=== PATIENT | female | born 1950 | race Caucasian/White ===

== ENCOUNTER → 2018-12-02 | Outpatient (CLI) | payer OTHER | LOC: M.LAB 04:30 | DX: E87.6 Hypokalemia (principal) ==

== ENCOUNTER 2020-06-22 20:06 | Inpatient (IN) | payer OTHER, MEDICARE ==
[~2020-06-22] VITALS: Ht 167.6 cm; Wt 87.7 kg
[2020-06-22 20:34] VITALS: BP 100/61
[2020-06-22 20:39] LABS: ABSOLUTE LYMPHOCYTES 0.9 thou/uL (0.8-5.3); ABSOLUTE MONOCYTES 0.2 thou/uL (0.0-1.2); ABSOLUTE NEUTROPHILS 3.3 thou/uL (1.6-8.1); BASOPHILS 0.4 %; HEMATOCRIT 44.2 % (37.0-47.0); HEMOGLOBIN 14.4 gm/dL (12.0-15.0); LYMPHOCYTES 20.4 %; MCH 28.4 pg (26.0-34.0); MCHC 32.5 g/dL (28.0-37.0); MCV 87.4 fL (80.0-100.0); MONOCYTES 5.2 %; MPV 10.6 fl. (7.2-11.1); NUCLEATED RBCS 0 /100WBC; PLATELET COUNT* 95 thou/uL (150-400); RBC 5.06 mil/uL (4.20-5.00); RDW-CV 14.2 % (10.5-14.5); WBC 4.5 thou/uL (4.0-11.0)
[2020-06-22 20:51] LABS: CALCIUM 8.6 mg/dL (8.5-10.1); CREATININE 1.9 mg/dL (0.6-1.3)
[2020-06-22 20:52] LABS: BE -6.7 mmol/L (-2 to +3); PCO2 24.5 mmHg (35.0-45.0); PO2 64.1 mmHg (75.0-100.0); pH 7.425 (7.340-7.450)
[2020-06-22 20:54] LABS: POTASSIUM 2.9 mmol/L (3.5-5.1)
[2020-06-22 20:56] LABS: ALBUMIN 3.2 g/dL (3.4-5.0); MAGNESIUM 2.4 mg/dL (1.8-2.4); TOTAL BILIRUBIN 0.4 mg/dL (<0.1-1.0); TOTAL PROTEIN 7.8 g/dL (6.4-8.2)
[2020-06-22 23:01] LABS: URINE BLOOD TRACE (Negative); URINE CLARITY CLEAR; URINE COLOR YELLOW; URINE GLUCOSE-RANDOM NEGATIVE (Negative); URINE KETONES 1+ (Negative); URINE LEUKOCYTES-REFLEX TRACE (Negative); URINE NITRITE-REFLEX NEGATIVE (Negative); URINE PROTEIN 2+ (Negative); URINE UROBILINOGEN 0.2 E.U./dl (0.2-1.0)
[2020-06-22 23:03] LABS: ICTOTEST (BILI CONFIRMATORY) Negative (Negative); URINE BILIRUBIN 1+ (Negative)
[2020-06-22 23:07] LABS: SQUAMOUS 4-10 Moderate /LPF (0-3)
[2020-06-22 23:08] LABS: BACTERIA-REFLEX >30 Many /HPF (None Seen); CASTS None Seen /LPF (None Seen); CRYSTALS None Seen /LPF (None Seen); MUCUS 4-6 Moderate strn/LPF (None Seen); URINE WBC-REFLEX 6-15 Few /HPF (0-5)
[2020-06-23] VITALS (7 sets, daily range): BP systolic 90–127; BP diastolic 47–74
--- NOTE | 2020-06-23 12:32 | EKG ---
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 : 1950 Requested By: Liat Fuentes Order Number: [id number] MD: Rory Luke Measurements Intervals [place] Rate: 88 P: 32 PA: 169 QRS: -17 QRSD: 101 T: 22 QT: 373 QTc: 452 Interpretive Statements Sinus rhythm Borderline left axis deviation Low voltage, precordial leads Abnormal R-wave progression, early transition No previous ECG available for comparison Electronically Signed On 06-23-2020 12:31:53 CDT by Rory Luke [email or web address] <ELECTRONICALLY SIGNED> By: Zainab Luke MD, [facility] 06/23/20 1231 11 11 Zainab Luke MD, [facility] /EPI
[2020-06-24 00:44] VITALS: BP 109/62
[2020-06-24 04:31] LABS: ABSOLUTE MONOCYTES 0.3 thou/uL (0.0-1.2); ABSOLUTE NEUTROPHILS 5.8 thou/uL (1.6-8.1); BASOPHILS 0.1 %; HEMATOCRIT 40.2 % (37.0-47.0); LYMPHOCYTES 14.2 %; MCH 28.5 pg (26.0-34.0); MCHC 32.2 g/dL (28.0-37.0); MCV 88.4 fL (80.0-100.0); MONOCYTES 4.7 %; MPV 11.3 fl. (7.2-11.1); NUCLEATED RBCS 0 /100WBC; PLATELET COUNT* 102 thou/uL (150-400); RBC 4.55 mil/uL (4.20-5.00); RDW-CV 14.7 % (10.5-14.5); WBC 7.1 thou/uL (4.0-11.0)
[2020-06-24 04:33] LABS: CALCIUM 8.4 mg/dL (8.5-10.1); CREATININE 1.3 mg/dL (0.6-1.3); POTASSIUM 3.5 mmol/L (3.5-5.1)
[2020-06-24 06:38] VITALS: BP 117/62
[2020-06-24 08:00] VITALS: BP 121/75
[2020-06-24 12:00] VITALS: BP 92/53
[2020-06-24 16:17] VITALS: BP 107/53; BP 112/63
[2020-06-24 16:20] VITALS: BP 124/77
[2020-06-25] VITALS (8 sets, daily range): BP systolic 104–135; BP diastolic 47–88
[2020-06-25 05:00] LABS: ABSOLUTE LYMPHOCYTES 0.7 thou/uL (0.8-5.3); ABSOLUTE MONOCYTES 0.6 thou/uL (0.0-1.2); ABSOLUTE NEUTROPHILS 5.8 thou/uL (1.6-8.1); BASOPHILS 0.2 %; HEMOGLOBIN 13.9 gm/dL (12.0-15.0); LYMPHOCYTES 9.3 %; MCH 28.7 pg (26.0-34.0); MCHC 32.4 g/dL (28.0-37.0); MCV 88.6 fL (80.0-100.0); MONOCYTES 8.3 %; MPV 10.5 fl. (7.2-11.1); NUCLEATED RBCS 0 /100WBC; PLATELET COUNT* 129 thou/uL (150-400); POLYS 82.2 %; RBC 4.85 mil/uL (4.20-5.00); RDW-CV 14.9 % (10.5-14.5); WBC 7.1 thou/uL (4.0-11.0)
[2020-06-25 05:12] LABS: ALBUMIN 2.5 g/dL (3.4-5.0); CALCIUM 8.5 mg/dL (8.5-10.1); CREATININE 1.3 mg/dL (0.6-1.3); TOTAL BILIRUBIN 0.3 mg/dL (<0.1-1.0); TOTAL PROTEIN 6.7 g/dL (6.4-8.2)
[2020-06-25 15:40] LABS: APTT 29.6 Seconds (25.0-31.3); INR 1.1; PROTIME 11.3 Seconds (9.20-11.50)
--- NOTE | 2020-06-25 17:22 | 2DMMODE ---
[place] [address] 2 D/M-MODE ECHOCARDIOGRAM Name: CAROLENRIQUETA Room: [address] IN [facility]#: [id number] Admission: 06/23/20 Attend Phys: Mason Carbajal, Discharge: Date of : 50 Date of Service: 06/25/20 1722 Report #: [id number] THIS REPORT FOR: cc: Marquis Duong MD, Jason MD Blick,Evans Hansen MD [facility] ~ APPROVED REPORT Study performed: 06/25/2020 15:19:36 EXAM: Comprehensive 2D, Doppler, and color-flow Echocardiogram Patient Location: In-Patient Room #: 232 Status: routine BSA: 2.00 HR: 66 bpm Rhythm: NSR Other Information Study Quality: Good Indications Dyspnea COVID 2D Dimensions IVSd: 11.05 (7-11mm) LVOT Diam: 19.78 (18-24mm) LVDd: 44.63 mm PWd: 8.88 (7-11mm) Ascending Ao: 35.22 (22-36mm) LVDs: 27.06 (25-40mm) Aortic Root: 31.87 mm Volumes Left Atrial Volume (Systole) LA ESV Index: 18.10 mL/m2 Aortic Valve AoV Peak Jordan.: 1.38 m/s AO Peak Gr.: 7.56 mmHg LVOT Max P.68 mmHg AO Mean Gr.: 4.34 mmHg LVOT Mean P.18 mmHg LVOT Max V: 1.08 m/s AO V2 VTI: 27.78 cm LVOT Mean V: 0.67 m/s VIVIANA (VTI): 2.44 cm2 LVOT V1 VTI: 22.04 [place] [address] 2 D/M-MODE ECHOCARDIOGRAM Name: ENRIQUETA MEDINA Room: [address] IN ..#: [id number] Admission: 06/23/20 Attend Phys: Mason Carbajal, Discharge: Date of : 50 Date of Service: 06/25/20 1722 Report #: [id number] Mitral Valve E/A Ratio: 0.93 MV Decel. Time: 275.57 ms MV E Max Jordan.: 0.62 m/s MV PHT: 79.91 ms MVA (PHT): 2.75 cm2 TDI E/Lateral E': 6.89 E/Medial E': 8.86 Medial E' Jordan.: 0.07 m/s Lateral E' Jordan.: 0.09 m/s Pulmonary Valve PV Peak Jordan.: 1.04 m/s PV Peak Gr.: 4.29 mmHg Left Ventricle The left ventricle is normal size. There is normal LV segmental wall motion. There is normal left ventricular wall thickness. Left ventricular systolic function is normal. The left ventricular ejection fraction is within the normal range. LVEF is 55-60%. The left ventricular diastolic function is normal. Right Ventricle The right ventricle is normal size. The right ventricular systolic function is normal. Atria The left atrium size is normal. The right atrium size is normal. Aortic Valve Mild aortic valve sclerosis. No aortic regurgitation is present. There is no aortic valvular stenosis. Mitral Valve The mitral valve is normal in structure. There is no mitral valve regurgitation noted. No evidence of mitral valve stenosis. Tricuspid Valve The tricuspid valve is normal in structure. Trace tricuspid regurgitation. Unable to assess PA pressure. Pulmonic Valve The pulmonary valve is normal in structure. There is no [place]mon[place] [address] 2 D/M-MODE ECHOCARDIOGRAM Name: ENRIQUETA MEDINA Room: [address] IN [facility]#: [id number] Admission: 06/23/20 Attend Phys: Mason Carbajal, Discharge: Date of : 50 Date of Service: 06/25/20 1722 Report #: [id number] Great Vessels The aortic root is normal in size. IVC is normal in size and collapses >50% with inspiration. Pericardium There is no pericardial effusion. <Conclusion> LVEF is 55-60%. Mild aortic valve sclerosis. <ELECTRONICALLY SIGNED> By: Evans Frazier MD, [facility] 06/25/201721 21 21 Evans Frazier MD, FAC /INF
[2020-06-26] VITALS (17 sets, daily range): BP systolic 104–132; BP diastolic 55–75
[2020-06-26 06:26] LABS: ABSOLUTE LYMPHOCYTES 0.6 thou/uL (0.8-5.3); ABSOLUTE MONOCYTES 0.3 thou/uL (0.0-1.2); ABSOLUTE NEUTROPHILS 3.2 thou/uL (1.6-8.1); BASOPHILS 0.2 %; HEMATOCRIT 37.8 % (37.0-47.0); HEMOGLOBIN 12.4 gm/dL (12.0-15.0); LYMPHOCYTES 13.8 %; MCH 28.5 pg (26.0-34.0); MCHC 32.8 g/dL (28.0-37.0); MONOCYTES 7.7 %; MPV 10.7 fl. (7.2-11.1); NUCLEATED RBCS 0 /100WBC; PLATELET COUNT* 140 thou/uL (150-400); POLYS 78.3 %; RBC 4.34 mil/uL (4.20-5.00); RDW-CV 14.5 % (10.5-14.5)
[2020-06-26 06:52] LABS: PREALBUMIN 12.3 mg/dL (18.0-35.7)
[2020-06-26 07:43] LABS: ALBUMIN 2.4 g/dL (3.4-5.0); CALCIUM 8.2 mg/dL (8.5-10.1); CREATININE 0.9 mg/dL (0.6-1.3); MAGNESIUM 2.2 mg/dL (1.8-2.4); POTASSIUM 3.4 mmol/L (3.5-5.1); TOTAL BILIRUBIN 0.3 mg/dL (<0.1-1.0); TOTAL PROTEIN 6.6 g/dL (6.4-8.2)
[2020-06-26 15:41] LABS: BE -5.2 mmol/L (-2 to +3)
[2020-06-26 15:44] LABS: PO2 50.3 mmHg (75.0-100.0)
[2020-06-26 17:29] LABS: CALCIUM 8.1 mg/dL (8.5-10.1); MAGNESIUM 2.2 mg/dL (1.8-2.4); POTASSIUM 3.8 mmol/L (3.5-5.1)
[2020-06-27] VITALS (39 sets, daily range): BP systolic 111–158; BP diastolic 56–78
[2020-06-27 03:14] LABS: HEMATOCRIT 39.3 % (37.0-47.0); HEMOGLOBIN 12.8 gm/dL (12.0-15.0); MCH 28.3 pg (26.0-34.0); MCHC 32.6 g/dL (28.0-37.0); MCV 86.9 fL (80.0-100.0); MPV 10.2 fl. (7.2-11.1); RBC 4.52 mil/uL (4.20-5.00); RDW-CV 14.7 % (10.5-14.5); WBC 6.1 thou/uL (4.0-11.0)
[2020-06-27 03:29] LABS: ALBUMIN 2.3 g/dL (3.4-5.0); CALCIUM 8.2 mg/dL (8.5-10.1); CREATININE 1.1 mg/dL (0.6-1.3); MAGNESIUM 2.1 mg/dL (1.8-2.4); POTASSIUM 3.8 mmol/L (3.5-5.1); TOTAL BILIRUBIN 0.3 mg/dL (<0.1-1.0); TOTAL PROTEIN 6.5 g/dL (6.4-8.2)
[2020-06-27 18:08] LABS: BE -4.8 mmol/L (-2 to +3); PCO2 VENOUS 36.7 mmHg (41.0-51.0); PO2 VENOUS 39.1 mmHg (35.0-45.0)
[2020-06-27 18:17] LABS: CALCIUM 8.2 mg/dL (8.5-10.1); MAGNESIUM 2.2 mg/dL (1.8-2.4); POTASSIUM 3.6 mmol/L (3.5-5.1)
[2020-06-28] VITALS (21 sets, daily range): BP systolic 107–153; BP diastolic 46–77
[2020-06-28 06:16] LABS: ABSOLUTE LYMPHOCYTES 0.5 thou/uL (0.8-5.3); ABSOLUTE MONOCYTES 0.7 thou/uL (0.0-1.2); ABSOLUTE NEUTROPHILS 6.8 thou/uL (1.6-8.1); BASOPHILS 0.2 %; HEMATOCRIT 40.3 % (37.0-47.0); LYMPHOCYTES 6.3 %; MCHC 32.2 g/dL (28.0-37.0); MCV 86.8 fL (80.0-100.0); MONOCYTES 8.7 %; MPV 10.2 fl. (7.2-11.1); NUCLEATED RBCS 0 /100WBC; PLATELET COUNT* 191 thou/uL (150-400); POLYS 84.8 %; RBC 4.64 mil/uL (4.20-5.00); RDW-CV 14.6 % (10.5-14.5)
[2020-06-28 06:33] LABS: ALBUMIN 2.3 g/dL (3.4-5.0); CALCIUM 8.1 mg/dL (8.5-10.1); POTASSIUM 3.7 mmol/L (3.5-5.1); TOTAL BILIRUBIN 0.3 mg/dL (<0.1-1.0); TOTAL PROTEIN 6.3 g/dL (6.4-8.2)
[2020-06-29] VITALS (45 sets, daily range): BP systolic 89–158; BP diastolic 35–89
[2020-06-29 05:49] LABS: ABSOLUTE LYMPHOCYTES 0.5 thou/uL (0.8-5.3); ABSOLUTE MONOCYTES 0.7 thou/uL (0.0-1.2); ABSOLUTE NEUTROPHILS 8.6 thou/uL (1.6-8.1); ALBUMIN 2.4 g/dL (3.4-5.0); BASOPHILS 0.1 %; CALCIUM 8.1 mg/dL (8.5-10.1); HEMATOCRIT 41.1 % (37.0-47.0); HEMOGLOBIN 13.2 gm/dL (12.0-15.0); LYMPHOCYTES 5.5 %; MCH 27.9 pg (26.0-34.0); MCHC 32.1 g/dL (28.0-37.0); MONOCYTES 6.8 %; MPV 10.4 fl. (7.2-11.1); NUCLEATED RBCS 0 /100WBC; PLATELET COUNT* 197 thou/uL (150-400); POLYS 87.6 %; POTASSIUM 3.7 mmol/L (3.5-5.1); RBC 4.72 mil/uL (4.20-5.00); RDW-CV 14.3 % (10.5-14.5); TOTAL BILIRUBIN 0.4 mg/dL (<0.1-1.0); TOTAL PROTEIN 6.1 g/dL (6.4-8.2); WBC 9.9 thou/uL (4.0-11.0)
[2020-06-29 13:10] LABS: BE -7.7 mmol/L (-2 to +3); PCO2 VENOUS 32.8 mmHg (41.0-51.0); PO2 VENOUS 52.6 mmHg (35.0-45.0)
[2020-06-30] VITALS (63 sets, daily range): BP systolic 57–157; BP diastolic 41–89
[2020-06-30 06:34] LABS: HEMATOCRIT 42.1 % (37.0-47.0); HEMOGLOBIN 13.4 gm/dL (12.0-15.0); MCH 27.8 pg (26.0-34.0); MCHC 31.9 g/dL (28.0-37.0); MCV 86.9 fL (80.0-100.0); NUCLEATED RBCS 0 /100WBC; PLATELET COUNT* 195 thou/uL (150-400); RBC 4.84 mil/uL (4.20-5.00); RDW-CV 14.6 % (10.5-14.5); WBC 13.5 thou/uL (4.0-11.0)
[2020-06-30 07:27] LABS: ALBUMIN 2.4 g/dL (3.4-5.0); CALCIUM 7.9 mg/dL (8.5-10.1); POTASSIUM 4.3 mmol/L (3.5-5.1); TOTAL BILIRUBIN 0.5 mg/dL (<0.1-1.0); TOTAL PROTEIN 5.8 g/dL (6.4-8.2)
[2020-06-30 07:43] LABS: ABSOLUTE LYMPHOCYTES 0.7 thou/uL (0.8-5.3); ABSOLUTE MONOCYTES 0.3 thou/uL (0.0-1.2); ABSOLUTE NEUTROPHILS 12.6 thou/uL (1.6-8.1); PLATELET ESTIMATE ADEQUATE
[2020-07-01] VITALS (92 sets, daily range): BP systolic 86–158; BP diastolic 46–93
[2020-07-01 04:27] LABS: HEMATOCRIT 45.2 % (37.0-47.0); HEMOGLOBIN 14.7 gm/dL (12.0-15.0); MCH 28.1 pg (26.0-34.0); MCHC 32.6 g/dL (28.0-37.0); MCV 86.3 fL (80.0-100.0); MPV 9.7 fl. (7.2-11.1); RBC 5.24 mil/uL (4.20-5.00); RDW-CV 14.8 % (10.5-14.5); WBC 22.2 thou/uL (4.0-11.0)
[2020-07-01 04:31] LABS: CREATININE 1.1 mg/dL (0.6-1.3); POTASSIUM 4.4 mmol/L (3.5-5.1)
[2020-07-01 11:48] LABS: URINE BILIRUBIN NEGATIVE (Negative); URINE BLOOD 3+ (Negative); URINE CLARITY CLOUDY; URINE COLOR RED; URINE GLUCOSE-RANDOM NEGATIVE (Negative); URINE KETONES 1+ (Negative); URINE LEUKOCYTES TRACE (Negative); URINE NITRITE POSITIVE (Negative); URINE PROTEIN 2+ (Negative)
[2020-07-01 11:51] LABS: CALCIUM 8.5 mg/dL (8.5-10.1); CREATININE 1.1 mg/dL (0.6-1.3); POTASSIUM 4.3 mmol/L (3.5-5.1)
[2020-07-01 11:56] LABS: BACTERIA 1-9 Few /HPF (None Seen); CASTS None Seen /LPF (None Seen); CRYSTALS None Seen /LPF (None Seen); MUCUS None Seen strn/LPF (None Seen); SQUAMOUS 0-3 Few /LPF (0-3); URINE RBC >20 Many /HPF (0-2); URINE WBC 0-5 Rare /HPF (0-5)
[2020-07-01 14:47] LABS: BE -6.6 mmol/L (-2 to +3); PCO2 VENOUS 36.8 mmHg (41.0-51.0)
[2020-07-02] VITALS (85 sets, daily range): BP systolic 79–165; BP diastolic 35–81
[2020-07-02 04:42] LABS: HEMATOCRIT 43.8 % (37.0-47.0); HEMOGLOBIN 14.3 gm/dL (12.0-15.0); MCH 28.5 pg (26.0-34.0); MCHC 32.7 g/dL (28.0-37.0); RBC 5.04 mil/uL (4.20-5.00); RDW-CV 14.6 % (10.5-14.5); WBC 20.2 thou/uL (4.0-11.0)
[2020-07-02 04:46] LABS: CALCIUM 8.3 mg/dL (8.5-10.1); CREATININE 0.9 mg/dL (0.6-1.3); POTASSIUM 4.4 mmol/L (3.5-5.1)
[2020-07-03] VITALS (24 sets, daily range): BP systolic 82–133; BP diastolic 47–78
[2020-07-03 05:23] LABS: ABSOLUTE EOSINOPHILS 0.1 thou/uL (0.0-0.7); ABSOLUTE LYMPHOCYTES 1.3 thou/uL (0.8-5.3); ABSOLUTE MONOCYTES 0.6 thou/uL (0.0-1.2); ABSOLUTE NEUTROPHILS 13.3 thou/uL (1.6-8.1); BASOPHILS 0.3 %; EOSINOPHILS 0.4 %; HEMATOCRIT 42.2 % (37.0-47.0); HEMOGLOBIN 13.7 gm/dL (12.0-15.0); LYMPHOCYTES 8.7 %; MCHC 32.4 g/dL (28.0-37.0); MCV 86.3 fL (80.0-100.0); MONOCYTES 4.1 %; NUCLEATED RBCS 0 /100WBC; PLATELET COUNT* 150 thou/uL (150-400); POLYS 86.5 %; RBC 4.89 mil/uL (4.20-5.00); RDW-CV 14.6 % (10.5-14.5); WBC 15.3 thou/uL (4.0-11.0)
[2020-07-03 05:38] LABS: ALBUMIN 3.1 g/dL (3.4-5.0); CALCIUM 8.4 mg/dL (8.5-10.1); MAGNESIUM 2.1 mg/dL (1.8-2.4); POTASSIUM 3.8 mmol/L (3.5-5.1); TOTAL BILIRUBIN 0.9 mg/dL (<0.1-1.0); TOTAL PROTEIN 6.2 g/dL (6.4-8.2)
[2020-07-04] VITALS (24 sets, daily range): BP systolic 96–132; BP diastolic 43–85
[2020-07-04 05:23] LABS: HEMATOCRIT 45.6 % (37.0-47.0); HEMOGLOBIN 14.8 gm/dL (12.0-15.0); MCH 28.5 pg (26.0-34.0); MCHC 32.5 g/dL (28.0-37.0); MCV 87.7 fL (80.0-100.0); MPV 10.2 fl. (7.2-11.1); RBC 5.2 mil/uL (4.20-5.00); RDW-CV 15.1 % (10.5-14.5)
[2020-07-04 05:48] LABS: CALCIUM 8.9 mg/dL (8.5-10.1); POTASSIUM 3.6 mmol/L (3.5-5.1)
[2020-07-05] VITALS (26 sets, daily range): BP systolic 72–132; BP diastolic 38–114
[2020-07-05 03:48] LABS: HEMATOCRIT 45.3 % (37.0-47.0); HEMOGLOBIN 14.8 gm/dL (12.0-15.0); MCH 28.4 pg (26.0-34.0); MCHC 32.7 g/dL (28.0-37.0); MCV 86.9 fL (80.0-100.0); MPV 11.2 fl. (7.2-11.1); NUCLEATED RBCS 0 /100WBC; PLATELET COUNT* 159 thou/uL (150-400); RBC 5.22 mil/uL (4.20-5.00); RDW-CV 14.9 % (10.5-14.5); WBC 30.5 thou/uL (4.0-11.0)
[2020-07-05 04:09] LABS: CALCIUM 9.1 mg/dL (8.5-10.1); CREATININE 1.1 mg/dL (0.6-1.3); MAGNESIUM 2.6 mg/dL (1.8-2.4); PHOSPHORUS* 2.2 mg/dL (2.5-4.9); POTASSIUM 3.4 mmol/L (3.5-5.1); TOTAL BILIRUBIN 1.6 mg/dL (<0.1-1.0); TOTAL PROTEIN 7.3 g/dL (6.4-8.2)
[2020-07-05 04:14] LABS: ALBUMIN 4.1 g/dL (3.4-5.0)
[2020-07-05 05:22] LABS: ABSOLUTE LYMPHOCYTES 2.7 thou/uL (0.8-5.3); ABSOLUTE MONOCYTES 1.8 thou/uL (0.0-1.2); ABSOLUTE NEUTROPHILS 25.9 thou/uL (1.6-8.1)
[2020-07-05 05:23] LABS: CLUMPED PLTS FEW; PLATELET ESTIMATE ADEQUATE; TOXIC GRANULATION 2+
[2020-07-05 13:18] LABS: BE -5.6 mmol/L (-2 to +3); PCO2 31.9 mmHg (35.0-45.0); PO2 83.5 mmHg (75.0-100.0); pH 7.378 (7.340-7.450)
[2020-07-05 13:36] LABS: CALCIUM 8.6 mg/dL (8.5-10.1); CREATININE 1.3 mg/dL (0.6-1.3); PHOSPHORUS* 3.2 mg/dL (2.5-4.9); POTASSIUM 5.3 mmol/L (3.5-5.1)
[2020-07-06] VITALS (57 sets, daily range): BP systolic 64–147; BP diastolic 36–92
[2020-07-06 04:28] LABS: BASOPHILS 0.1 %; MCH 29.3 pg (26.0-34.0); MCV 88.6 fL (80.0-100.0); MONOCYTES 4.2 %; MPV 10.9 fl. (7.2-11.1); NUCLEATED RBCS 0 /100WBC; POLYS 89.7 %; RBC 4.06 mil/uL (4.20-5.00); RDW-CV 15.1 % (10.5-14.5)
[2020-07-06 04:46] LABS: ALBUMIN 3.4 g/dL (3.4-5.0); CALCIUM 8.3 mg/dL (8.5-10.1); CREATININE 0.9 mg/dL (0.6-1.3); TOTAL BILIRUBIN 1.9 mg/dL (<0.1-1.0); TOTAL PROTEIN 5.6 g/dL (6.4-8.2)
[2020-07-06 05:13] LABS: ABSOLUTE LYMPHOCYTES 0.9 thou/uL (0.8-5.3); ABSOLUTE MONOCYTES 0.6 thou/uL (0.0-1.2); ABSOLUTE NEUTROPHILS 13.4 thou/uL (1.6-8.1); HEMOGLOBIN 11.9 gm/dL (12.0-15.0); PLATELET COUNT* 72 thou/uL (150-400); WBC 14.9 thou/uL (4.0-11.0)
[2020-07-06 05:44] LABS: POTASSIUM 3.5 mmol/L (3.5-5.1)
[2020-07-06 08:05] LABS: BE -6.4 mmol/L (-2 to +3); PCO2 31.7 mmHg (35.0-45.0); pH 7.368 (7.340-7.450)
[2020-07-06 09:33] LABS: HEMATOCRIT 39.8 % (37.0-47.0); HEMOGLOBIN 12.8 gm/dL (12.0-15.0); MCH 28.5 pg (26.0-34.0); MCHC 32.1 g/dL (28.0-37.0); MCV 88.8 fL (80.0-100.0); MPV 11.4 fl. (7.2-11.1); NUCLEATED RBCS 0 /100WBC; PLATELET COUNT* 112 thou/uL (150-400); RBC 4.49 mil/uL (4.20-5.00); RDW-CV 15.3 % (10.5-14.5); WBC 26.5 thou/uL (4.0-11.0)
[2020-07-06 09:51] LABS: CALCIUM 8.2 mg/dL (8.5-10.1); CREATININE 0.9 mg/dL (0.6-1.3); MAGNESIUM 2.3 mg/dL (1.8-2.4); PHOSPHORUS* 3.1 mg/dL (2.5-4.9); POTASSIUM 3.3 mmol/L (3.5-5.1)
[2020-07-06 10:12] LABS: ABSOLUTE LYMPHOCYTES 1.3 thou/uL (0.8-5.3); ABSOLUTE MONOCYTES 0.8 thou/uL (0.0-1.2); ABSOLUTE NEUTROPHILS 24.4 thou/uL (1.6-8.1); PLATELET ESTIMATE ADEQUATE
[2020-07-06 18:40] LABS: HEMATOCRIT 40.9 % (37.0-47.0); HEMOGLOBIN 12.8 gm/dL (12.0-15.0); MCH 28.6 pg (26.0-34.0); MCHC 31.3 g/dL (28.0-37.0); MCV 91.4 fL (80.0-100.0); MPV 11.1 fl. (7.2-11.1); NUCLEATED RBCS 0 /100WBC; PLATELET COUNT* 123 thou/uL (150-400); RBC 4.47 mil/uL (4.20-5.00); RDW-CV 16.3 % (10.5-14.5); WBC 39.2 thou/uL (4.0-11.0)
[2020-07-06 18:56] LABS: CREATININE 1.3 mg/dL (0.6-1.3); MAGNESIUM 2.2 mg/dL (1.8-2.4); POTASSIUM 4.3 mmol/L (3.5-5.1)
[2020-07-06 19:18] LABS: ABSOLUTE LYMPHOCYTES 1.2 thou/uL (0.8-5.3); ABSOLUTE MONOCYTES 0.8 thou/uL (0.0-1.2); ABSOLUTE NEUTROPHILS 37.2 thou/uL (1.6-8.1); PLATELET ESTIMATE ADEQUATE
[2020-07-06 20:00] LABS: BE -10.6 mmol/L (-2 to +3); PCO2 28.8 mmHg (35.0-45.0); PO2 66.5 mmHg (75.0-100.0)
[2020-07-06 20:26] LABS: CALCIUM 8.4 mg/dL (8.5-10.1); CREATININE 1.1 mg/dL (0.6-1.3); POTASSIUM 4.2 mmol/L (3.5-5.1)
[2020-07-07] VITALS (64 sets, daily range): BP systolic 67–156; BP diastolic 41–81
[2020-07-07 05:02] LABS: ABSOLUTE BASOPHILS 0.1 thou/uL (0.0-0.2); ABSOLUTE EOSINOPHILS 0.1 thou/uL (0.0-0.7); ABSOLUTE LYMPHOCYTES 1.9 thou/uL (0.8-5.3); ABSOLUTE MONOCYTES 2.1 thou/uL (0.0-1.2); BASOPHILS 0.2 %; EOSINOPHILS 0.2 %; HEMATOCRIT 38.5 % (37.0-47.0); HEMOGLOBIN 12.4 gm/dL (12.0-15.0); LYMPHOCYTES 4.6 %; MCH 28.4 pg (26.0-34.0); MCHC 32.3 g/dL (28.0-37.0); MCV 87.9 fL (80.0-100.0); MONOCYTES 5.1 %; MPV 11.1 fl. (7.2-11.1); NUCLEATED RBCS 0 /100WBC; PLATELET COUNT* 114 thou/uL (150-400); POLYS 89.9 %; RBC 4.38 mil/uL (4.20-5.00); RDW-CV 15.4 % (10.5-14.5)
[2020-07-07 06:26] LABS: ABSOLUTE NEUTROPHILS 37.8 thou/uL (1.6-8.1)
[2020-07-07 06:58] LABS: ALBUMIN 2.9 g/dL (3.4-5.0); CALCIUM 8.2 mg/dL (8.5-10.1); CREATININE 0.9 mg/dL (0.6-1.3); MAGNESIUM 2.2 mg/dL (1.8-2.4); PHOSPHORUS* 1.3 mg/dL (2.5-4.9); TOTAL BILIRUBIN 1.5 mg/dL (<0.1-1.0); TOTAL PROTEIN 4.8 g/dL (6.4-8.2)
[2020-07-07 07:00] LABS: POTASSIUM 3.2 mmol/L (3.5-5.1)
[2020-07-07 08:07] LABS: BE -2.9 mmol/L (-2 to +3); PCO2 35.3 mmHg (35.0-45.0); pH 7.398 (7.340-7.450)
[2020-07-07 08:13] LABS: PO2 59.8 mmHg (75.0-100.0)
[2020-07-07 16:46] LABS: BE -4.4 mmol/L (-2 to +3); PCO2 35.9 mmHg (35.0-45.0); PO2 78.3 mmHg (75.0-100.0); pH 7.369 (7.340-7.450)
[2020-07-07 16:51] LABS: ABSOLUTE NEUTROPHILS 46.2 thou/uL (1.6-8.1); BASOPHILS 0.1 %; EOSINOPHILS 0.1 %; HEMATOCRIT 36.8 % (37.0-47.0); LYMPHOCYTES 4.2 %; MCH 28.3 pg (26.0-34.0); MCHC 32.5 g/dL (28.0-37.0); MCV 86.9 fL (80.0-100.0); MONOCYTES 4.6 %; MPV 11.5 fl. (7.2-11.1); NUCLEATED RBCS 0 /100WBC; PLATELET COUNT* 110 thou/uL (150-400); RBC 4.23 mil/uL (4.20-5.00); RDW-CV 14.9 % (10.5-14.5)
[2020-07-07 16:57] LABS: ABSOLUTE BASOPHILS 0.1 thou/uL (0.0-0.2); ABSOLUTE EOSINOPHILS 0.1 thou/uL (0.0-0.7); ABSOLUTE LYMPHOCYTES 2.1 thou/uL (0.8-5.3); ABSOLUTE MONOCYTES 2.3 thou/uL (0.0-1.2)
[2020-07-07 16:58] LABS: WBC 50.8 thou/uL (4.0-11.0)
[2020-07-07 17:02] LABS: CALCIUM 7.8 mg/dL (8.5-10.1); POTASSIUM 4.9 mmol/L (3.5-5.1)
[2020-07-07 17:06] LABS: APTT 27.2 Seconds (25.0-31.3); INR 1.1; PROTIME 11.5 Seconds (9.20-11.50)
[2020-07-08] VITALS (34 sets, daily range): BP systolic 83–149; BP diastolic 40–73
[2020-07-08 03:52] LABS: BASOPHILS 0.2 %; EOSINOPHILS 0.1 %; LYMPHOCYTES 5.4 %; MCH 28.4 pg (26.0-34.0); MCHC 32.4 g/dL (28.0-37.0); MCV 87.6 fL (80.0-100.0); MONOCYTES 4.4 %; MPV 11.1 fl. (7.2-11.1); NUCLEATED RBCS 0 /100WBC; PLATELET COUNT* 65 thou/uL (150-400); POLYS 89.9 %; RBC 3.08 mil/uL (4.20-5.00); RDW-CV 15.2 % (10.5-14.5)
[2020-07-08 04:13] LABS: ALBUMIN 3.6 g/dL (3.4-5.0); CALCIUM 7.6 mg/dL (8.5-10.1); CREATININE 0.9 mg/dL (0.6-1.3); MAGNESIUM 1.9 mg/dL (1.8-2.4); POTASSIUM 4.2 mmol/L (3.5-5.1); TOTAL BILIRUBIN 2.5 mg/dL (<0.1-1.0); TOTAL PROTEIN 4.8 g/dL (6.4-8.2)
[2020-07-08 04:18] LABS: PHOSPHORUS* 2.4 mg/dL (2.5-4.9)
[2020-07-08 05:59] LABS: ABSOLUTE BASOPHILS 0.1 thou/uL (0.0-0.2); ABSOLUTE LYMPHOCYTES 1.5 thou/uL (0.8-5.3); ABSOLUTE MONOCYTES 1.3 thou/uL (0.0-1.2); ABSOLUTE NEUTROPHILS 25.7 thou/uL (1.6-8.1); HEMOGLOBIN 8.8 gm/dL (12.0-15.0); WBC 28.6 thou/uL (4.0-11.0)
[2020-07-08 07:26] LABS: BE -1.9 mmol/L (-2 to +3); PCO2 34.1 mmHg (35.0-45.0); pH 7.428 (7.340-7.450)
[2020-07-08 07:28] LABS: PO2 59.8 mmHg (75.0-100.0)
[2020-07-08 14:44] LABS: ABSOLUTE LYMPHOCYTES 0.8 thou/uL (0.8-5.3); ABSOLUTE MONOCYTES 0.7 thou/uL (0.0-1.2); ABSOLUTE NEUTROPHILS 27.3 thou/uL (1.6-8.1); EOSINOPHILS 0.1 %; HEMATOCRIT 27.2 % (37.0-47.0); HEMOGLOBIN 8.9 gm/dL (12.0-15.0); LYMPHOCYTES 2.6 %; MCH 28.7 pg (26.0-34.0); MCHC 32.8 g/dL (28.0-37.0); MCV 87.3 fL (80.0-100.0); MONOCYTES 2.5 %; MPV 10.8 fl. (7.2-11.1); NUCLEATED RBCS 0 /100WBC; PLATELET COUNT* 58 thou/uL (150-400); POLYS 94.8 %; RBC 3.11 mil/uL (4.20-5.00); RDW-CV 15.1 % (10.5-14.5); WBC 28.8 thou/uL (4.0-11.0)
[2020-07-08 14:53] LABS: CALCIUM 7.5 mg/dL (8.5-10.1); CREATININE 0.9 mg/dL (0.6-1.3); MAGNESIUM 1.8 mg/dL (1.8-2.4); POTASSIUM 4.5 mmol/L (3.5-5.1)
[2020-07-09] VITALS (21 sets, daily range): BP systolic 97–134; BP diastolic 50–65
[2020-07-09 04:13] LABS: ABSOLUTE LYMPHOCYTES 1.1 thou/uL (0.8-5.3); ABSOLUTE MONOCYTES 1.1 thou/uL (0.0-1.2); ABSOLUTE NEUTROPHILS 20.5 thou/uL (1.6-8.1); EOSINOPHILS 0.1 %; HEMATOCRIT 25.6 % (37.0-47.0); HEMOGLOBIN 8.5 gm/dL (12.0-15.0); LYMPHOCYTES 4.7 %; MCHC 33.2 g/dL (28.0-37.0); MCV 87.4 fL (80.0-100.0); MONOCYTES 4.8 %; MPV 11.3 fl. (7.2-11.1); NUCLEATED RBCS 0 /100WBC; PLATELET COUNT* 52 thou/uL (150-400); POLYS 90.4 %; RBC 2.93 mil/uL (4.20-5.00); RDW-CV 15.3 % (10.5-14.5); WBC 22.7 thou/uL (4.0-11.0)
[2020-07-09 04:24] LABS: CALCIUM 7.8 mg/dL (8.5-10.1); CREATININE 0.7 mg/dL (0.6-1.3); MAGNESIUM 2.2 mg/dL (1.8-2.4); PHOSPHORUS* 2.1 mg/dL (2.5-4.9); POTASSIUM 4.2 mmol/L (3.5-5.1)
[2020-07-09 08:36] LABS: BE -1.5 mmol/L (-2 to +3); PCO2 37.1 mmHg (35.0-45.0); PO2 64.9 mmHg (75.0-100.0); pH 7.409 (7.340-7.450)
[2020-07-09 09:15] LABS: ALBUMIN 2.9 g/dL (3.4-5.0); CALCIUM 7.6 mg/dL (8.5-10.1); CREATININE 0.8 mg/dL (0.6-1.3); MAGNESIUM 2.1 mg/dL (1.8-2.4); PHOSPHORUS* 1.9 mg/dL (2.5-4.9); POTASSIUM 3.9 mmol/L (3.5-5.1); TOTAL BILIRUBIN 1.9 mg/dL (<0.1-1.0); TOTAL PROTEIN 4.7 g/dL (6.4-8.2)
[2020-07-10] VITALS (57 sets, daily range): BP systolic 72–132; BP diastolic 42–63
[2020-07-10 05:09] LABS: HEMATOCRIT 27.7 % (37.0-47.0); MCH 28.5 pg (26.0-34.0); MCHC 32.6 g/dL (28.0-37.0); MCV 87.4 fL (80.0-100.0); MPV 11.1 fl. (7.2-11.1); NUCLEATED RBCS 0 /100WBC; PLATELET COUNT* 55 thou/uL (150-400); RBC 3.17 mil/uL (4.20-5.00); RDW-CV 15.3 % (10.5-14.5); WBC 21.2 thou/uL (4.0-11.0)
[2020-07-10 05:19] LABS: ALBUMIN 3.3 g/dL (3.4-5.0); CALCIUM 7.6 mg/dL (8.5-10.1); CREATININE 0.7 mg/dL (0.6-1.3); MAGNESIUM 2.1 mg/dL (1.8-2.4); PHOSPHORUS* 3.4 mg/dL (2.5-4.9); POTASSIUM 3.9 mmol/L (3.5-5.1); TOTAL BILIRUBIN 2.4 mg/dL (<0.1-1.0); TOTAL PROTEIN 5.7 g/dL (6.4-8.2)
[2020-07-10 07:37] LABS: ABSOLUTE LYMPHOCYTES 2.1 thou/uL (0.8-5.3); ABSOLUTE MONOCYTES 0.4 thou/uL (0.0-1.2); ABSOLUTE NEUTROPHILS 18.7 thou/uL (1.6-8.1); ATYPICAL LYMPHS P %; PLATELET ESTIMATE DECREASED
[2020-07-10 07:38] LABS: ANISOCYTOSIS 1+; LARGE PLATELETS RARE; POIKILOCYTOSIS 1+
[2020-07-10 08:30] LABS: BE -0.5 mmol/L (-2 to +3); PCO2 39.2 mmHg (35.0-45.0); PO2 71.2 mmHg (75.0-100.0); pH 7.406 (7.340-7.450)
--- NOTE | 2020-07-10 14:52 | CON ---
[place] [address] CONSULTATION Name: ENRIQUETA MEDINA Room: [address] IN M.R.#: [id number] Admission: 06/23/20 Attend Phys: Mason Carbajal MD Discharge: Date of : 50 Report #: [id number] THIS REPORT FOR: cc: Marquis Duong MD, Jason MD Namin, Farid M. MD ~ DOC #: [id number] cc: MD Han Navarro MD DATE OF CONSULTATION: 07/07/2020 REASON FOR CONSULTATION: Elevation of pancreatic enzyme and transaminases REQUESTING PHYSICIAN: Dr. Chavez. HISTORY OF PRESENT ILLNESS: This is a 69-year-old female with history of COVID who was admitted to hospital on 06/23/2020. She has apparently been sick a week prior to her presentation. Her presentation included shortness of breath and weakness. During hospitalization, the patient's respiratory status worsened and she finally was intubated. She has received TPN for a short amount of time, but prior to that, she was able to eat. Since yesterday, the patient's LFTs have bumped and her lipase found to be in 6000 range yesterday and is about 8000 today. Her abdomen is mildly distended, but she is sedated and intubated. PAST MEDICAL HISTORY: Significant for history of bilateral knee replacement, obesity, right shoulder surgery. ALLERGIES: SIGNIFICANT TO ASPIRIN. MEDICATIONS: Please refer to MAR. SOCIAL HISTORY: The patient lives at home. She does not have any history of tobacco or alcohol use. FAMILY HISTORY: Noncontributory. PHYSICAL EXAMINATION: VITAL SIGNS: Reveals blood pressure of 147/81, respirations 22, pulse 97, temperature is 97.5. LUNGS: Breath sounds are audible bilaterally. Note, the patient is intubated. CARDIOVASCULAR: Regular rate. ABDOMEN: Soft, but mildly distended. Bowel [place], [place] [address] CONSULTATION Name: ENRIQUETA MEDINA Room: [address] IN [facility]#: [id number] Admission: 06/23/20 Attend Phys: Mason Carbajal MD Discharge: Date of : 50 Report #: [id number] hypoactive. LABORATORY DATA: Labs reveal sodium of 154; potassium 3.2; BUN is 47; creatinine 0.9; glucose is 194; AST 123, up from 34; ALT is 198, up from 69; alkaline phosphatase is 88; total bilirubin is 1.5, down from 1.9. Lipase is 8800, up from 6300. WBC is 42,000, hemoglobin is 12.4 with platelets of 114. IMAGING: Abdominal ultrasound was obtained, which showed that gallbladder was present without any evidence of cholecystitis. There is evidence of steatosis of the liver. In this study, the pancreas was not visualized well. The common bile duct is 5.8 mm in diameter and gallbladder was free of stone, but had a small amount of debris in it. ASSESSMENT AND PLAN: The patient with pancreatitis and elevated liver enzymes. There is usually a high correlation between elevated LFTs and pancreatitis when there is a biliary cause. In this case, alkaline phosphatase is normal. The bile duct is mildly dilated to 5.8 mm. Her pancreatitis may be multifactorial or med-induced as transaminases are elevated as well. Bilirubin has down trended since yesterday, so we will continue monitoring LFTs. I will make her n.p.o. and consider hydrating her with half normal saline as her sodium is 152. If her lipase continues to be elevated, we will consider a Dobbhoff post-gastric feeding on Thursday. We will continue to monitor the patient. Han Gomez MD FMN/SUB <ELECTRONICALLY SIGNED> By: Han Gomez MD 07/10/20 1452 1438 2135Han Gomez MD /nt
[2020-07-10 17:34] LABS: CALCIUM 7.8 mg/dL (8.5-10.1); CREATININE 0.8 mg/dL (0.6-1.3); MAGNESIUM 1.9 mg/dL (1.8-2.4); POTASSIUM 3.8 mmol/L (3.5-5.1)
[2020-07-11] VITALS (46 sets, daily range): BP systolic 100–141; BP diastolic 58–75
[2020-07-11 06:26] LABS: ABSOLUTE LYMPHOCYTES 1.1 thou/uL (0.8-5.3); ABSOLUTE MONOCYTES 1.9 thou/uL (0.0-1.2); HEMATOCRIT 30.8 % (37.0-47.0); HEMOGLOBIN 10.2 gm/dL (12.0-15.0); LYMPHOCYTES 3.4 %; MCH 28.8 pg (26.0-34.0); MCHC 33.2 g/dL (28.0-37.0); MCV 86.7 fL (80.0-100.0); MONOCYTES 5.8 %; MPV 10.9 fl. (7.2-11.1); NUCLEATED RBCS 0 /100WBC; PLATELET COUNT* 103 thou/uL (150-400); POLYS 90.8 %; RBC 3.55 mil/uL (4.20-5.00); WBC 31.9 thou/uL (4.0-11.0)
[2020-07-11 06:39] LABS: PHOSPHORUS* 2.9 mg/dL (2.5-4.9)
[2020-07-11 06:41] LABS: ALBUMIN 4.4 g/dL (3.4-5.0); CALCIUM 8.5 mg/dL (8.5-10.1); CREATININE 0.8 mg/dL (0.6-1.3); POTASSIUM 3.6 mmol/L (3.5-5.1); TOTAL BILIRUBIN 3.6 mg/dL (<0.1-1.0); TOTAL PROTEIN 6.7 g/dL (6.4-8.2)
[2020-07-11 09:21] LABS: MAGNESIUM 2.2 mg/dL (1.8-2.4); PHOSPHORUS* 2.9 mg/dL (2.5-4.9)
[2020-07-11 18:16] LABS: CALCIUM 8.2 mg/dL (8.5-10.1); CREATININE 0.6 mg/dL (0.6-1.3); MAGNESIUM 2.3 mg/dL (1.8-2.4); POTASSIUM 3.8 mmol/L (3.5-5.1)
[2020-07-12] VITALS (23 sets, daily range): BP systolic 73–165; BP diastolic 43–75
[2020-07-12 05:41] LABS: ABSOLUTE LYMPHOCYTES 1.3 thou/uL (0.8-5.3); ABSOLUTE MONOCYTES 2.2 thou/uL (0.0-1.2); ABSOLUTE NEUTROPHILS 23.7 thou/uL (1.6-8.1); BASOPHILS 0.1 %; LYMPHOCYTES 4.9 %; MCHC 33.3 g/dL (28.0-37.0); MONOCYTES 8.1 %; MPV 10.8 fl. (7.2-11.1); NUCLEATED RBCS 0 /100WBC; PLATELET COUNT* 101 thou/uL (150-400); POLYS 86.9 %; RBC 3.45 mil/uL (4.20-5.00); WBC 27.2 thou/uL (4.0-11.0)
[2020-07-12 05:56] LABS: MAGNESIUM 2.2 mg/dL (1.8-2.4); PHOSPHORUS* 2.3 mg/dL (2.5-4.9)
[2020-07-12 06:17] LABS: ALBUMIN 3.5 g/dL (3.4-5.0); CALCIUM 8.2 mg/dL (8.5-10.1); CREATININE 0.7 mg/dL (0.6-1.3); POTASSIUM 3.6 mmol/L (3.5-5.1); TOTAL BILIRUBIN 4.3 mg/dL (<0.1-1.0); TOTAL PROTEIN 5.8 g/dL (6.4-8.2)
[2020-07-12 07:30] LABS: BE -2.2 mmol/L (-2 to +3); PCO2 39.8 mmHg (35.0-45.0); PO2 69.6 mmHg (75.0-100.0); pH 7.375 (7.340-7.450)
[2020-07-13] VITALS (28 sets, daily range): BP systolic 89–146; BP diastolic 48–68
[2020-07-13 04:27] LABS: ABSOLUTE LYMPHOCYTES 0.8 thou/uL (0.8-5.3); ABSOLUTE MONOCYTES 0.9 thou/uL (0.0-1.2); EOSINOPHILS 0.1 %; HEMATOCRIT 27.6 % (37.0-47.0); HEMOGLOBIN 9.1 gm/dL (12.0-15.0); LYMPHOCYTES 5.2 %; MCHC 32.8 g/dL (28.0-37.0); MCV 88.3 fL (80.0-100.0); MONOCYTES 6.2 %; NUCLEATED RBCS 0 /100WBC; PLATELET COUNT* 81 thou/uL (150-400); POLYS 88.5 %; RBC 3.13 mil/uL (4.20-5.00); RDW-CV 15.6 % (10.5-14.5); WBC 14.6 thou/uL (4.0-11.0)
[2020-07-13 04:41] LABS: ALBUMIN 2.8 g/dL (3.4-5.0); CALCIUM 8.2 mg/dL (8.5-10.1); CREATININE 0.7 mg/dL (0.6-1.3); POTASSIUM 4.2 mmol/L (3.5-5.1); TOTAL BILIRUBIN 5.4 mg/dL (<0.1-1.0); TOTAL PROTEIN 5.2 g/dL (6.4-8.2)
[2020-07-13 09:12] LABS: INR 1.5; PROTIME 15.1 Seconds (9.20-11.50)
[2020-07-13 09:17] LABS: MAGNESIUM 2.1 mg/dL (1.8-2.4); PHOSPHORUS* 2.5 mg/dL (2.5-4.9)
[2020-07-14] VITALS (52 sets, daily range): BP systolic 76–144; BP diastolic 42–67
[2020-07-14 04:37] LABS: HEMATOCRIT 26.6 % (37.0-47.0); HEMOGLOBIN 8.7 gm/dL (12.0-15.0); MCH 28.7 pg (26.0-34.0); MCHC 32.6 g/dL (28.0-37.0); MCV 88.3 fL (80.0-100.0); MPV 10.3 fl. (7.2-11.1); NUCLEATED RBCS 0 /100WBC; PLATELET COUNT* 76 thou/uL (150-400); RBC 3.02 mil/uL (4.20-5.00); RDW-CV 15.9 % (10.5-14.5); WBC 13.8 thou/uL (4.0-11.0)
[2020-07-14 05:09] LABS: ALBUMIN 2.4 g/dL (3.4-5.0); CALCIUM 7.7 mg/dL (8.5-10.1); CREATININE 0.6 mg/dL (0.6-1.3); MAGNESIUM 1.9 mg/dL (1.8-2.4); PHOSPHORUS* 2.5 mg/dL (2.5-4.9); TOTAL BILIRUBIN 1.8 mg/dL (<0.1-1.0); TOTAL PROTEIN 4.5 g/dL (6.4-8.2)
[2020-07-14 05:46] LABS: BE -6.8 mmol/L (-2 to +3); PCO2 29.3 mmHg (35.0-45.0); PO2 69.2 mmHg (75.0-100.0); pH 7.389 (7.340-7.450)
[2020-07-14 06:43] LABS: ABSOLUTE EOSINOPHILS 0.3 thou/uL (0.0-0.7); ABSOLUTE LYMPHOCYTES 0.4 thou/uL (0.8-5.3); ABSOLUTE MONOCYTES 0.4 thou/uL (0.0-1.2); ABSOLUTE NEUTROPHILS 12.7 thou/uL (1.6-8.1); LARGE PLATELETS RARE; PLATELET ESTIMATE DECREASED
[2020-07-15] VITALS (64 sets, daily range): BP systolic 88–124; BP diastolic 42–60
[2020-07-15 05:27] LABS: ABSOLUTE EOSINOPHILS 0.1 thou/uL (0.0-0.7); ABSOLUTE LYMPHOCYTES 1.2 thou/uL (0.8-5.3); ABSOLUTE MONOCYTES 0.7 thou/uL (0.0-1.2); BASOPHILS 0.1 %; EOSINOPHILS 0.8 %; HEMATOCRIT 26.9 % (37.0-47.0); HEMOGLOBIN 8.7 gm/dL (12.0-15.0); LYMPHOCYTES 6.9 %; MCH 28.7 pg (26.0-34.0); MCHC 32.4 g/dL (28.0-37.0); MCV 88.5 fL (80.0-100.0); MONOCYTES 4.3 %; MPV 11.2 fl. (7.2-11.1); NUCLEATED RBCS 0 /100WBC; PLATELET COUNT* 100 thou/uL (150-400); POLYS 87.9 %; RBC 3.03 mil/uL (4.20-5.00); WBC 17.1 thou/uL (4.0-11.0)
[2020-07-15 05:42] LABS: MAGNESIUM 1.8 mg/dL (1.8-2.4); PHOSPHORUS* 2.3 mg/dL (2.5-4.9)
[2020-07-15 05:47] LABS: ALBUMIN 2.2 g/dL (3.4-5.0); CALCIUM 7.8 mg/dL (8.5-10.1); CREATININE 0.6 mg/dL (0.6-1.3); POTASSIUM 3.8 mmol/L (3.5-5.1); TOTAL BILIRUBIN 1.2 mg/dL (<0.1-1.0); TOTAL PROTEIN 5.1 g/dL (6.4-8.2)
[2020-07-15 05:55] LABS: BE -2.8 mmol/L (-2 to +3); PCO2 37.1 mmHg (35.0-45.0); pH 7.388 (7.340-7.450)
[2020-07-15 06:06] LABS: PO2 190.4 mmHg (75.0-100.0)
[2020-07-16] VITALS (71 sets, daily range): BP systolic 93–137; BP diastolic 46–65
[2020-07-16 06:00] LABS: POLYS 86.2 %
[2020-07-16 06:02] LABS: ABSOLUTE EOSINOPHILS 0.1 thou/uL (0.0-0.7); ABSOLUTE LYMPHOCYTES 1.2 thou/uL (0.8-5.3); ABSOLUTE MONOCYTES 0.8 thou/uL (0.0-1.2); ABSOLUTE NEUTROPHILS 13.3 thou/uL (1.6-8.1); BASOPHILS 0.2 %; EOSINOPHILS 0.7 %; HEMATOCRIT 25.1 % (37.0-47.0); HEMOGLOBIN 8.3 gm/dL (12.0-15.0); LYMPHOCYTES 7.7 %; MCH 29.2 pg (26.0-34.0); MCHC 33.3 g/dL (28.0-37.0); MCV 87.6 fL (80.0-100.0); MONOCYTES 5.2 %; MPV 10.6 fl. (7.2-11.1); NUCLEATED RBCS 0 /100WBC; PLATELET COUNT* 120 thou/uL (150-400); RBC 2.86 mil/uL (4.20-5.00); RDW-CV 16.4 % (10.5-14.5); WBC 15.4 thou/uL (4.0-11.0)
[2020-07-16 06:14] LABS: ALBUMIN 2.7 g/dL (3.4-5.0); CREATININE 0.5 mg/dL (0.6-1.3); POTASSIUM 3.5 mmol/L (3.5-5.1); TOTAL PROTEIN 5.6 g/dL (6.4-8.2)
[2020-07-16 13:56] LABS: BE -4.1 mmol/L (-2 to +3); PCO2 38.1 mmHg (35.0-45.0); pH 7.359 (7.340-7.450)
[2020-07-16 13:57] LABS: PO2 59.3 mmHg (75.0-100.0)
[2020-07-17] VITALS (32 sets, daily range): BP systolic 85–151; BP diastolic 50–65
[2020-07-17 05:01] LABS: HEMATOCRIT 26.1 % (37.0-47.0); HEMOGLOBIN 8.6 gm/dL (12.0-15.0); MCHC 32.8 g/dL (28.0-37.0); MCV 88.4 fL (80.0-100.0); MPV 10.5 fl. (7.2-11.1); NUCLEATED RBCS 0 /100WBC; PLATELET COUNT* 157 thou/uL (150-400); RBC 2.95 mil/uL (4.20-5.00); RDW-CV 17.1 % (10.5-14.5); WBC 16.5 thou/uL (4.0-11.0)
[2020-07-17 05:17] LABS: ALBUMIN 2.4 g/dL (3.4-5.0); CALCIUM 7.9 mg/dL (8.5-10.1); CREATININE 0.5 mg/dL (0.6-1.3); POTASSIUM 4.3 mmol/L (3.5-5.1); TOTAL BILIRUBIN 0.9 mg/dL (<0.1-1.0); TOTAL PROTEIN 5.6 g/dL (6.4-8.2)
[2020-07-17 05:18] LABS: PROTIME 10.6 Seconds (9.20-11.50)
[2020-07-17 05:19] LABS: APTT 22.3 Seconds (25.0-31.3)
[2020-07-17 06:25] LABS: PHOSPHORUS* 2.8 mg/dL (2.5-4.9)
[2020-07-17 07:43] LABS: ABSOLUTE LYMPHOCYTES 0.7 thou/uL (0.8-5.3); ABSOLUTE MONOCYTES 0.5 thou/uL (0.0-1.2); ABSOLUTE NEUTROPHILS 15.3 thou/uL (1.6-8.1); PLATELET ESTIMATE ADEQUATE
[2020-07-17 13:08] LABS: IgG 416 mg/dL (586-1602)
[2020-07-17 13:45] LABS: BE -5.7 mmol/L (-2 to +3); PCO2 44.1 mmHg (35.0-45.0); PO2 90.3 mmHg (75.0-100.0)
[2020-07-17 13:47] LABS: pH 7.288 (7.340-7.450)
[2020-07-18] VITALS (39 sets, daily range): BP systolic 91–150; BP diastolic 42–66
[2020-07-18 05:40] LABS: ABSOLUTE LYMPHOCYTES 0.9 thou/uL (0.8-5.3); ABSOLUTE MONOCYTES 1.2 thou/uL (0.0-1.2); ABSOLUTE NEUTROPHILS 15.7 thou/uL (1.6-8.1); BASOPHILS 0.2 %; EOSINOPHILS 0.1 %; HEMATOCRIT 28.6 % (37.0-47.0); HEMOGLOBIN 9.2 gm/dL (12.0-15.0); LYMPHOCYTES 5.1 %; MCH 28.8 pg (26.0-34.0); MCHC 32.2 g/dL (28.0-37.0); MCV 89.6 fL (80.0-100.0); MPV 10.9 fl. (7.2-11.1); NUCLEATED RBCS 0 /100WBC; POLYS 87.6 %; RDW-CV 17.6 % (10.5-14.5); WBC 17.9 thou/uL (4.0-11.0)
[2020-07-18 05:51] LABS: PLATELET COUNT* 240 thou/uL (150-400)
[2020-07-18 06:03] LABS: ALBUMIN 2.6 g/dL (3.4-5.0); CALCIUM 8.4 mg/dL (8.5-10.1); CREATININE 0.5 mg/dL (0.6-1.3); MAGNESIUM 2.2 mg/dL (1.8-2.4); PHOSPHORUS* 2.2 mg/dL (2.5-4.9); POTASSIUM 4.1 mmol/L (3.5-5.1); TOTAL BILIRUBIN 0.9 mg/dL (<0.1-1.0); TOTAL PROTEIN 6.1 g/dL (6.4-8.2)
[2020-07-18 09:49] LABS: BE -5.4 mmol/L (-2 to +3); PCO2 39.5 mmHg (35.0-45.0); PO2 70.8 mmHg (75.0-100.0); pH 7.325 (7.340-7.450)
[2020-07-18 19:07] LABS: ANA INTERPRETATION Negative (())
[2020-07-19] VITALS (35 sets, daily range): BP systolic 106–181; BP diastolic 46–114
[2020-07-19 05:40] LABS: ABSOLUTE EOSINOPHILS 0.2 thou/uL (0.0-0.7); ABSOLUTE LYMPHOCYTES 1.4 thou/uL (0.8-5.3); ABSOLUTE MONOCYTES 1.2 thou/uL (0.0-1.2); ABSOLUTE NEUTROPHILS 15.8 thou/uL (1.6-8.1); BASOPHILS 0.1 %; EOSINOPHILS 0.8 %; HEMATOCRIT 26.1 % (37.0-47.0); HEMOGLOBIN 8.4 gm/dL (12.0-15.0); LYMPHOCYTES 7.7 %; MCH 28.3 pg (26.0-34.0); MCV 88.4 fL (80.0-100.0); MONOCYTES 6.4 %; MPV 10.3 fl. (7.2-11.1); NUCLEATED RBCS 0 /100WBC; PLATELET COUNT* 243 thou/uL (150-400); RBC 2.96 mil/uL (4.20-5.00); RDW-CV 17.7 % (10.5-14.5); WBC 18.5 thou/uL (4.0-11.0)
[2020-07-19 05:56] LABS: ALBUMIN 2.2 g/dL (3.4-5.0); CALCIUM 7.9 mg/dL (8.5-10.1); CREATININE 0.4 mg/dL (0.6-1.3); MAGNESIUM 1.9 mg/dL (1.8-2.4); PHOSPHORUS* 1.4 mg/dL (2.5-4.9); POTASSIUM 3.2 mmol/L (3.5-5.1); TOTAL BILIRUBIN 0.8 mg/dL (<0.1-1.0); TOTAL PROTEIN 5.8 g/dL (6.4-8.2)
[2020-07-20] VITALS (32 sets, daily range): BP systolic 78–154; BP diastolic 36–64
[2020-07-20 03:53] LABS: HEMATOCRIT 25.8 % (37.0-47.0); HEMOGLOBIN 8.5 gm/dL (12.0-15.0); MCH 29.2 pg (26.0-34.0); MCV 88.4 fL (80.0-100.0); MPV 10.3 fl. (7.2-11.1); NUCLEATED RBCS 0 /100WBC; PLATELET COUNT* 247 thou/uL (150-400); RBC 2.92 mil/uL (4.20-5.00); RDW-CV 17.8 % (10.5-14.5); WBC 20.3 thou/uL (4.0-11.0)
[2020-07-20 04:15] LABS: CALCIUM 7.9 mg/dL (8.5-10.1); CREATININE 0.4 mg/dL (0.6-1.3); POTASSIUM 3.9 mmol/L (3.5-5.1); TOTAL BILIRUBIN 0.9 mg/dL (<0.1-1.0); TOTAL PROTEIN 5.6 g/dL (6.4-8.2)
[2020-07-20 04:19] LABS: PREALBUMIN 13.7 mg/dL (18.0-35.7)
[2020-07-20 05:40] LABS: ABSOLUTE LYMPHOCYTES 0.8 thou/uL (0.8-5.3); ABSOLUTE MONOCYTES 0.4 thou/uL (0.0-1.2); ABSOLUTE NEUTROPHILS 19.1 thou/uL (1.6-8.1)
[2020-07-20 05:41] LABS: PLATELET ESTIMATE ADEQUATE
[2020-07-20 05:43] LABS: ANISOCYTOSIS Occasional; POIKILOCYTOSIS Occasional; TOXIC GRANULATION 1+
--- NOTE | 2020-07-20 16:19 | EKG ---
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 : 1950 Requested By: Mason Carbajal Order Number: [id number] Marjorie MD: John Conner Measurements Intervals [place] Rate: 50 P: 6 FL: 172 QRS: 2 QRSD: 99 T: 13 QT: 477 QTc: 435 Interpretive Statements Sinus rhythm Atrial premature complex Abnormal R-wave progression, early transition Borderline ST elevation, lateral leads Compared to ECG 06/22/2020 20:12:13 Atrial premature complex(es) now present ST (T wave) deviation now present Electronically Signed On 07-20-2020 16:19:13 CDT by John Conner [email or web address] <ELECTRONICALLY SIGNED> By: John Conner MD, [facility] 07/20/20 1619 1559 1559 John Conner MD, [facility] /EPI
[2020-07-21] VITALS (36 sets, daily range): BP systolic 94–156; BP diastolic 41–74
[2020-07-21 04:53] LABS: ABSOLUTE LYMPHOCYTES 0.9 thou/uL (0.8-5.3); ABSOLUTE MONOCYTES 0.9 thou/uL (0.0-1.2); BASOPHILS 0.2 %; EOSINOPHILS 0.1 %; HEMATOCRIT 23.2 % (37.0-47.0); HEMOGLOBIN 7.6 gm/dL (12.0-15.0); LYMPHOCYTES 5.2 %; MCH 28.9 pg (26.0-34.0); MCHC 32.8 g/dL (28.0-37.0); MCV 88.2 fL (80.0-100.0); MPV 9.7 fl. (7.2-11.1); NUCLEATED RBCS 0 /100WBC; PLATELET COUNT* 232 thou/uL (150-400); POLYS 89.5 %; RBC 2.63 mil/uL (4.20-5.00); WBC 17.9 thou/uL (4.0-11.0)
[2020-07-21 05:40] LABS: ALBUMIN 2.4 g/dL (3.4-5.0); CREATININE 0.5 mg/dL (0.6-1.3); MAGNESIUM 1.9 mg/dL (1.8-2.4); TOTAL BILIRUBIN 0.7 mg/dL (<0.1-1.0); TOTAL PROTEIN 5.7 g/dL (6.4-8.2)
[2020-07-21 07:23] LABS: PHOSPHORUS* 2.3 mg/dL (2.5-4.9)
[2020-07-22] VITALS (35 sets, daily range): BP systolic 94–187; BP diastolic 44–84
[2020-07-22 03:58] LABS: HEMATOCRIT 25.4 % (37.0-47.0); HEMOGLOBIN 8.3 gm/dL (12.0-15.0); MCHC 32.6 g/dL (28.0-37.0); MCV 88.9 fL (80.0-100.0); RBC 2.85 mil/uL (4.20-5.00); RDW-CV 17.6 % (10.5-14.5)
[2020-07-22 04:13] LABS: CALCIUM 8.2 mg/dL (8.5-10.1); CREATININE 0.4 mg/dL (0.6-1.3); POTASSIUM 4.1 mmol/L (3.5-5.1)
[2020-07-23] VITALS (32 sets, daily range): BP systolic 105–181; BP diastolic 54–76
[2020-07-23 05:20] LABS: ABSOLUTE EOSINOPHILS 0.1 thou/uL (0.0-0.7); ABSOLUTE LYMPHOCYTES 1.7 thou/uL (0.8-5.3); ABSOLUTE MONOCYTES 1.4 thou/uL (0.0-1.2); ABSOLUTE NEUTROPHILS 28.2 thou/uL (1.6-8.1); BASOPHILS 0.1 %; EOSINOPHILS 0.2 %; HEMATOCRIT 26.8 % (37.0-47.0); HEMOGLOBIN 8.7 gm/dL (12.0-15.0); LYMPHOCYTES 5.4 %; MCH 28.3 pg (26.0-34.0); MCHC 32.2 g/dL (28.0-37.0); MCV 87.8 fL (80.0-100.0); MONOCYTES 4.4 %; MPV 9.8 fl. (7.2-11.1); NUCLEATED RBCS 0 /100WBC; PLATELET COUNT* 316 thou/uL (150-400); POLYS 89.9 %; RBC 3.06 mil/uL (4.20-5.00); RDW-CV 17.6 % (10.5-14.5); WBC 31.4 thou/uL (4.0-11.0)
[2020-07-23 05:29] LABS: ALBUMIN 2.4 g/dL (3.4-5.0); CALCIUM 8.1 mg/dL (8.5-10.1); CREATININE 0.4 mg/dL (0.6-1.3); POTASSIUM 3.4 mmol/L (3.5-5.1); TOTAL BILIRUBIN 0.8 mg/dL (<0.1-1.0); TOTAL PROTEIN 5.8 g/dL (6.4-8.2)
--- NOTE | 2020-07-23 11:53 | OP ---
[address] [address] OPERATIVE REPORT Name: ENRIQUETA LEÓN Room: [address] IN .R.#: [id number] Admission: 06/23/20 Attend Phys: Mason Carbajal MD Discharge: Date of : 50 Report #: [id number] THIS REPORT FOR: cc: Marquis Duong MD, Jason MD Gazzetta, Joshua D. DO ~ DOC #: [id number] cc: Jeison Diaz DO, Marquis Duong MD Dictated by Yeimi León DO DATE OF SURGERY: 07/17/2020 PREOPERATIVE DIAGNOSES: Respiratory failure and malnutrition. POSTOPERATIVE DIAGNOSES: Respiratory failure and malnutrition. PROCEDURES PERFORMED: Tracheostomy and percutaneous endoscopic gastrostomy tube placement. PRIMARY SURGEON: Jeison Diaz DO OCEAN LIFEGUARD SPECIALIST: Yeimi León DO, PGY3 SECOND OVERCOIL STEPPER: Aida LEWIS3. FINDINGS: Normal anatomy. IMPLANTS: A 24-Angolan gastrostomy tube placed at 3.5 cm at the skin and an 8 cuffed Shiley tracheostomy tube. ESTIMATED BLOOD LOSS: 5. COMPLICATIONS: No specimens. INDICATIONS FOR PROCEDURE: The patient is a 70-year-old female that initially presented to the emergency department with worsening shortness of breath and cough after previously being diagnosed with COVID-19. She was admitted to the hospital and unfortunately continued to decline. She has been intubated on ventilatory support since 07/05, so it was recommended that she undergo a tracheostomy as well as a percutaneous endoscopic gastrostomy tube placement for feeding access. The procedure, risks, benefits, possible complications to include bleeding, infection, injury to surrounding structures, need for additional surgery, risk of anesthesia and other risks of surgery were discussed with the patient's family. They consented for us to proceed with the procedure. DESCRIPTION OF PROCEDURE: The patient was brought to the [place] [address] OPERATIVE REPORT Name: ENRIQUETA LEÓN Cuca Room: [address] IN [facility].#: [id number] Admission: 06/23/20 Attend Phys: Mason Carbajal MD Discharge: Date of : 50 Report #: [id number] the ICU, taking care to observe COVID precautions. The patient was transferred to the OR table and her shoulder roll was placed. The neck was placed in slight extension. The neck and abdomen were both prepped and draped in the standard sterile fashion. She was receiving antibiotics in the perioperative period. A timeout was performed to ensure correct patient and procedure and we proceeded with the tracheostomy tube placement first. A marking pen was used to joya the anatomical landmarks on the anterior neck, sternal notch, cricoid cartilage as well as thyroid cartilage. A 2 cm transverse incision was marked out using the marking pen approximately 2 fingerbreadths above the sternal notch and below the cricoid cartilage. A #15-blade scalpel was used to make a 2 cm incision along the planned joya. The incision was carried down through the subcutaneous tissues using electrocautery. The platysma was transected using electrocautery, ensuring hemostasis along the way. The strap muscles were encountered. The median raphe was then incised and the strap muscles were retracted laterally. We continued our dissection down until we reached the pretracheal fascia. The cricoid cartilage was palpated. Pretracheal fascia was cleared away using mostly blunt dissection and a small amount of electrocautery. The tracheal rings were visualized and palpated. We were in close communication with the anesthesia throughout the entirety of the case. A hook was used to retract the cricoid cartilage superiorly. We communicated with anesthesia and they deflated the endotracheal tube balloon. A #11-blade scalpel was used to incise the trachea between rings 2 and 3. Trach staff midwife/apprenticeship director was then used to open this incision further. An 8-Angolan cuffed Shiley tracheostomy tube had been opened and prepared. Prior to this, the balloon was tested. The anesthesia provider then retracted the endotracheal tube and the 8-Angolan Shiley cuffed tube was placed through our tracheotomy. The inner cannula was then inserted through the tracheostomy tube and the tube was hooked up to the anesthesia circuit. Balloon was then inflated. There was good end tidal CO2 noted with chest rise. No leak noted. We then carefully inspected all around the tracheostomy tube to ensure that everything appeared to be hemostatic. The tracheostomy was then secured to the skin using 0 Prolene suture. Once this was completed, we prepared to perform our EGD and PEG placement. A 24-Angolan PEG tube was selected and brought onto the field. The endoscope was prepared. A bite block was placed. Endoscope was advanced into the mouth, into the oropharynx ensuring visualization the entire time The epiglottis was visualized. The endoscope was then advanced on into the esophagus. The endoscope was advanced further into the stomach. There was quite a bit of edema all throughout the oropharynx, esophagus and in the stomach as well. The stomach was inspected. We did see small ulcers, did not appear to be bleeding. The endoscope was advanced further to the antrum, through the pylorus and into the duodenum. No abnormalities were noted. Scope was then pulled back into the stomach. The stomach was completely inflated. The abdominal wall was palpated and there was just to the left of midline and inferior to the left costal margin, a place was selected. The stomach was transilluminated and an optimal position for the PEG tube was identified. [place] [id number] OPERATIVE REPORT Name: ENRIQUETA LEÓN Room: [address] IN .R.#: [id number] Admission: 06/23/20 Attend Phys: Mason Carbajal MD Discharge: Date of : 50 Report #: [id number] One-to-one motion and light reflux appreciated. A small jt incision was made and the needle and sheath were inserted through the abdominal wall into the stomach under direct visualization. The needle was removed and guidewire was inserted through the sheath. The guidewire was grasped with a snare that was inserted through the endoscope. The endoscope and the snare as well as the wire were removed. The pull-through PEG tube was then secured to the guidewire. The guidewire and PEG tube were then pulled through the mouth and esophagus and into the stomach. The endoscope was then reinserted into the mouth and advanced through the oropharynx into the esophagus all the way into the stomach. The PEG tube appeared to be in good position. No bleeding. The stomach was then desufflated and the endoscope was removed. The PEG tube was trimmed and the flange was placed onto the tube as well as the clip into the tube. The flange was secured to the skin using 3-0 nylon suture in three different places. An abdominal binder was placed. The patient tolerated the procedure very well. She was not allowed to awaken in the operating room. She was transferred back to the ICU in stable condition. Yeimi León DO SS/DAIJA <ELECTRONICALLY SIGNED> By: Jeison Diaz DO 07/23/20 1153 0951 [id number] Diaz DO /nt
[2020-07-24] VITALS (31 sets, daily range): BP systolic 95–182; BP diastolic 50–76
[2020-07-24 05:22] LABS: ABSOLUTE BASOPHILS 0.1 thou/uL (0.0-0.2); ABSOLUTE EOSINOPHILS 0.1 thou/uL (0.0-0.7); ABSOLUTE LYMPHOCYTES 2.8 thou/uL (0.8-5.3); ABSOLUTE MONOCYTES 1.8 thou/uL (0.0-1.2); ABSOLUTE NEUTROPHILS 34.7 thou/uL (1.6-8.1); BASOPHILS 0.2 %; EOSINOPHILS 0.2 %; HEMATOCRIT 27.9 % (37.0-47.0); LYMPHOCYTES 7.2 %; MCH 28.4 pg (26.0-34.0); MCHC 32.1 g/dL (28.0-37.0); MCV 88.4 fL (80.0-100.0); MONOCYTES 4.6 %; MPV 9.7 fl. (7.2-11.1); NUCLEATED RBCS 0 /100WBC; PLATELET COUNT* 360 thou/uL (150-400); POLYS 87.8 %; RBC 3.16 mil/uL (4.20-5.00); RDW-CV 17.5 % (10.5-14.5); WBC 39.5 thou/uL (4.0-11.0)
[2020-07-24 05:38] LABS: ALBUMIN 2.4 g/dL (3.4-5.0); CALCIUM 8.5 mg/dL (8.5-10.1); CREATININE 0.4 mg/dL (0.6-1.3); POTASSIUM 3.8 mmol/L (3.5-5.1); TOTAL BILIRUBIN 0.7 mg/dL (<0.1-1.0); TOTAL PROTEIN 6.2 g/dL (6.4-8.2)
[2020-07-24 11:30] LABS: BE 0.5 mmol/L (-2 to +3); PCO2 35.6 mmHg (35.0-45.0); PO2 78.3 mmHg (75.0-100.0); pH 7.452 (7.340-7.450)
[2020-07-24 17:37] LABS: CALCIUM 8.1 mg/dL (8.5-10.1); CREATININE 0.6 mg/dL (0.6-1.3); MAGNESIUM 2.5 mg/dL (1.8-2.4); POTASSIUM 4.3 mmol/L (3.5-5.1)
[2020-07-25] VITALS (50 sets, daily range): BP systolic 85–137; BP diastolic 45–77
[2020-07-25 00:36] LABS: BE 4.7 mmol/L (-2 to +3); PCO2 40.8 mmHg (35.0-45.0); pH 7.467 (7.340-7.450)
[2020-07-25 00:41] LABS: PO2 47.9 mmHg (75.0-100.0)
[2020-07-25 04:26] LABS: ABSOLUTE LYMPHOCYTES 0.8 thou/uL (0.8-5.3); ABSOLUTE MONOCYTES 1.8 thou/uL (0.0-1.2); ABSOLUTE NEUTROPHILS 29.9 thou/uL (1.6-8.1); BASOPHILS 0.1 %; EOSINOPHILS 0.1 %; HEMATOCRIT 26.2 % (37.0-47.0); HEMOGLOBIN 8.5 gm/dL (12.0-15.0); LYMPHOCYTES 2.5 %; MCH 28.7 pg (26.0-34.0); MCHC 32.5 g/dL (28.0-37.0); MCV 88.4 fL (80.0-100.0); MONOCYTES 5.6 %; MPV 9.5 fl. (7.2-11.1); NUCLEATED RBCS 0 /100WBC; POLYS 91.7 %; RBC 2.96 mil/uL (4.20-5.00); WBC 32.6 thou/uL (4.0-11.0)
[2020-07-25 04:27] LABS: PLATELET COUNT* 259 thou/uL (150-400)
[2020-07-25 04:40] LABS: CALCIUM 8.4 mg/dL (8.5-10.1); CREATININE 0.6 mg/dL (0.6-1.3); PHOSPHORUS* 2.8 mg/dL (2.5-4.9); POTASSIUM 3.9 mmol/L (3.5-5.1)
[2020-07-25 04:43] LABS: ALBUMIN 2.2 g/dL (3.4-5.0); CALCIUM 8.7 mg/dL (8.5-10.1); CREATININE 0.6 mg/dL (0.6-1.3); POTASSIUM 3.8 mmol/L (3.5-5.1); TOTAL BILIRUBIN 0.4 mg/dL (<0.1-1.0); TOTAL PROTEIN 5.9 g/dL (6.4-8.2)
[2020-07-25 12:17] LABS: CALCIUM 8.2 mg/dL (8.5-10.1); CREATININE 0.5 mg/dL (0.6-1.3); POTASSIUM 3.8 mmol/L (3.5-5.1)
[2020-07-25 12:25] LABS: APTT 22.6 Seconds (25.0-31.3); PROTIME 10.6 Seconds (9.20-11.50)
[2020-07-26] VITALS (49 sets, daily range): BP systolic 77–138; BP diastolic 42–75
[2020-07-26 05:27] LABS: HEMATOCRIT 27.5 % (37.0-47.0); HEMOGLOBIN 8.8 gm/dL (12.0-15.0); MCH 28.6 pg (26.0-34.0); MCV 89.4 fL (80.0-100.0); MPV 9.8 fl. (7.2-11.1); NUCLEATED RBCS 0 /100WBC; PLATELET COUNT* 244 thou/uL (150-400); RBC 3.07 mil/uL (4.20-5.00); RDW-CV 18.6 % (10.5-14.5); WBC 26.6 thou/uL (4.0-11.0)
[2020-07-26 05:46] LABS: ALBUMIN 2.8 g/dL (3.4-5.0); CALCIUM 8.5 mg/dL (8.5-10.1); CREATININE 0.4 mg/dL (0.6-1.3); MAGNESIUM 1.9 mg/dL (1.8-2.4); POTASSIUM 3.4 mmol/L (3.5-5.1); TOTAL BILIRUBIN 0.7 mg/dL (<0.1-1.0); TOTAL PROTEIN 6.4 g/dL (6.4-8.2)
[2020-07-26 06:11] LABS: ABSOLUTE LYMPHOCYTES 0.8 thou/uL (0.8-5.3); ABSOLUTE MONOCYTES 0.3 thou/uL (0.0-1.2); ABSOLUTE NEUTROPHILS 25.5 thou/uL (1.6-8.1); ATYPICAL LYMPHS 1 %; METAMYELOCYTES 1 %; PLATELET ESTIMATE ADEQUATE
[2020-07-27] VITALS (23 sets, daily range): BP systolic 78–130; BP diastolic 43–83
[2020-07-27 05:20] LABS: ABSOLUTE BASOPHILS 0.1 thou/uL (0.0-0.2); ABSOLUTE EOSINOPHILS 0.3 thou/uL (0.0-0.7); ABSOLUTE LYMPHOCYTES 2.3 thou/uL (0.8-5.3); ABSOLUTE MONOCYTES 1.2 thou/uL (0.0-1.2); ABSOLUTE NEUTROPHILS 26.2 thou/uL (1.6-8.1); BASOPHILS 0.2 %; EOSINOPHILS 0.8 %; HEMATOCRIT 29.1 % (37.0-47.0); HEMOGLOBIN 9.4 gm/dL (12.0-15.0); LYMPHOCYTES 7.5 %; MCH 28.9 pg (26.0-34.0); MCHC 32.4 g/dL (28.0-37.0); MCV 89.5 fL (80.0-100.0); MONOCYTES 4.1 %; MPV 9.9 fl. (7.2-11.1); NUCLEATED RBCS 0 /100WBC; PLATELET COUNT* 275 thou/uL (150-400); POLYS 87.4 %; RBC 3.25 mil/uL (4.20-5.00); RDW-CV 18.1 % (10.5-14.5)
[2020-07-27 05:37] LABS: ALBUMIN 2.4 g/dL (3.4-5.0); CALCIUM 8.5 mg/dL (8.5-10.1); CREATININE 0.4 mg/dL (0.6-1.3); POTASSIUM 3.8 mmol/L (3.5-5.1); TOTAL BILIRUBIN 0.6 mg/dL (<0.1-1.0)
[2020-07-27 05:44] LABS: PREALBUMIN 18.3 mg/dL (18.0-35.7)
[2020-07-28] VITALS (21 sets, daily range): BP systolic 95–175; BP diastolic 53–99
[2020-07-28 05:46] LABS: ABSOLUTE BASOPHILS 0.1 thou/uL (0.0-0.2); BASOPHILS 0.3 %; HEMOGLOBIN 8.1 gm/dL (12.0-15.0); MPV 10.3 fl. (7.2-11.1); POLYS 93.5 %; WBC 27.1 thou/uL (4.0-11.0)
[2020-07-28 05:49] LABS: ABSOLUTE LYMPHOCYTES 0.9 thou/uL (0.8-5.3); ABSOLUTE MONOCYTES 0.8 thou/uL (0.0-1.2); ABSOLUTE NEUTROPHILS 25.3 thou/uL (1.6-8.1); HEMATOCRIT 25.2 % (37.0-47.0); LYMPHOCYTES 3.2 %; MCH 28.8 pg (26.0-34.0); MCV 90.1 fL (80.0-100.0); NUCLEATED RBCS 0 /100WBC; PLATELET COUNT* 207 thou/uL (150-400); RDW-CV 18.9 % (10.5-14.5)
[2020-07-28 05:59] LABS: ALBUMIN 2.7 g/dL (3.4-5.0); CREATININE 0.5 mg/dL (0.6-1.3); MAGNESIUM 2.2 mg/dL (1.8-2.4); POTASSIUM 3.5 mmol/L (3.5-5.1); TOTAL BILIRUBIN 0.6 mg/dL (<0.1-1.0); TOTAL PROTEIN 6.1 g/dL (6.4-8.2)
[2020-07-29] VITALS (98 sets, daily range): BP systolic 84–154; BP diastolic 50–98
[2020-07-29 03:37] LABS: HEMATOCRIT 25.1 % (37.0-47.0); MCH 28.8 pg (26.0-34.0); MCHC 31.8 g/dL (28.0-37.0); MCV 90.3 fL (80.0-100.0); MPV 10.2 fl. (7.2-11.1); NUCLEATED RBCS 0 /100WBC; PLATELET COUNT* 161 thou/uL (150-400); RBC 2.78 mil/uL (4.20-5.00); RDW-CV 18.4 % (10.5-14.5); WBC 24.5 thou/uL (4.0-11.0)
[2020-07-29 04:02] LABS: PREALBUMIN 17.6 mg/dL (18.0-35.7)
[2020-07-29 04:03] LABS: ALBUMIN 2.8 g/dL (3.4-5.0); CREATININE 0.3 mg/dL (0.6-1.3); MAGNESIUM 2.2 mg/dL (1.8-2.4); POTASSIUM 3.9 mmol/L (3.5-5.1); TOTAL BILIRUBIN 0.4 mg/dL (<0.1-1.0); TOTAL PROTEIN 6.1 g/dL (6.4-8.2)
[2020-07-29 06:29] LABS: ABSOLUTE LYMPHOCYTES 2.7 thou/uL (0.8-5.3); ABSOLUTE MONOCYTES 0.2 thou/uL (0.0-1.2); ABSOLUTE NEUTROPHILS 21.6 thou/uL (1.6-8.1)
[2020-07-29 06:30] LABS: ANISOCYTOSIS 1+; HYPOCHROMASIA 3+; MICROCYTES 1+
[2020-07-29 11:57] LABS: BE 5.2 mmol/L (-2 to +3); PCO2 43.9 mmHg (35.0-45.0); PO2 65.8 mmHg (75.0-100.0); pH 7.449 (7.340-7.450)
[2020-07-29 23:52] LABS: URINE BLOOD 3+ (Negative); URINE CLARITY CLOUDY; URINE COLOR YELLOW; URINE GLUCOSE-RANDOM NEGATIVE (Negative); URINE KETONES TRACE (Negative); URINE LEUKOCYTES 1+ (Negative); URINE NITRITE NEGATIVE (Negative); URINE PROTEIN 2+ (Negative); URINE SPECIFIC GRAVITY 1.015 (1.005-1.030); URINE UROBILINOGEN 0.2 E.U./dl (0.2-1.0)
[2020-07-30] VITALS (37 sets, daily range): BP systolic 90–118; BP diastolic 51–77
[2020-07-30 00:17] LABS: ICTOTEST (BILI CONFIRMATORY) Negative (Negative); URINE BILIRUBIN 1+ (Negative)
[2020-07-30 00:22] LABS: HYALINE CASTS 0-3 Few /LPF (None Seen); SQUAMOUS 0-3 Few /LPF (0-3)
[2020-07-30 00:24] LABS: AMORPHOUS PHOSPHATES Moderate /LPF (None Seen)
[2020-07-30 00:27] LABS: RENAL EPITHELIAL CELLS 0-3 Few /LPF (None Seen); YEAST Present (None Seen)
[2020-07-30 03:47] LABS: ABSOLUTE EOSINOPHILS 0.3 thou/uL (0.0-0.7); ABSOLUTE MONOCYTES 1.2 thou/uL (0.0-1.2); ABSOLUTE NEUTROPHILS 23.2 thou/uL (1.6-8.1); HEMATOCRIT 26.5 % (37.0-47.0); HEMOGLOBIN 8.6 gm/dL (12.0-15.0); LYMPHOCYTES 7.6 %; MCH 29.2 pg (26.0-34.0); MCHC 32.5 g/dL (28.0-37.0); MCV 89.7 fL (80.0-100.0); MONOCYTES 4.4 %; MPV 10.3 fl. (7.2-11.1); NUCLEATED RBCS 0 /100WBC; RBC 2.96 mil/uL (4.20-5.00); RDW-CV 18.8 % (10.5-14.5); WBC 26.6 thou/uL (4.0-11.0)
[2020-07-30 03:53] LABS: ALBUMIN 2.3 g/dL (3.4-5.0); CALCIUM 8.3 mg/dL (8.5-10.1); CREATININE 0.4 mg/dL (0.6-1.3); MAGNESIUM 2.1 mg/dL (1.8-2.4); PLATELET COUNT* 250 thou/uL (150-400); POTASSIUM 3.8 mmol/L (3.5-5.1); TOTAL BILIRUBIN 0.3 mg/dL (<0.1-1.0); TOTAL PROTEIN 5.9 g/dL (6.4-8.2)
[2020-07-30 03:54] LABS: PHOSPHORUS* 2.9 mg/dL (2.5-4.9)
[2020-07-30 03:58] LABS: PREALBUMIN 16.7 mg/dL (18.0-35.7)
[2020-07-30 11:05] LABS: BE 4.7 mmol/L (-2 to +3); PCO2 46.3 mmHg (35.0-45.0); PO2 63.4 mmHg (75.0-100.0); pH 7.425 (7.340-7.450)
--- NOTE | 2020-07-30 17:04 | CON ---
[address] [address] CONSULTATION Name: ENRIQUETA MEDINA Room: [address] IN .R.#: [id number] Admission: 06/23/20 Attend Phys: Mason Carbajal MD Discharge: Date of : 50 Report #: [id number] THIS REPORT FOR: cc: Marquis Duong MD, Jason MD Elia,Devi FERGUSON ~ DOC #: [id number] Devi Guzmán MD DATE OF CONSULTATION: 07/13/2020 REQUESTING PHYSICIAN: Maykel Chavez MD REASON FOR CONSULTATION: Thrombocytopenia. HISTORY OF PRESENT ILLNESS: The patient is a 69-year-old woman, who was admitted to the hospital with COVID-19 pneumonia weeks ago. She initially was diagnosed with COVID-19 in late May. Her condition gradually got worse, and she was admitted to the hospital. During hospital stay, she became severely hypoxic, she was intubated. Now, because of prolonged intubation, tracheostomy is placed. Her platelets have been fluctuating. A week ago, her platelets went down to 50s. Anticoagulation was discontinued. HIT test was ordered, which was normal. Platelets recovered somewhat, but now, it came down again. Hematology consult is requested. PHYSICAL EXAMINATION: GENERAL: She is intubated and sedated. The patient is examined from distance. She does not have large bruises, does not have lymphadenopathy. VITAL SIGNS: Blood pressure 96/57, heart rate 61, temperature 97.7, respirations 18. LABORATORY DATA: White count 14.6, hemoglobin 9.1, platelets 81. . INR 1.5. Heparin-induced panel negative. ASSESSMENT AND PLAN: Thrombocytopenia, mild, secondary to multiple factors, most likely secondary to infection and medications, most likely bone marrow suppression because of COVID-19. Recommend to restart prophylactic Lovenox. Continue prophylaxis with Lovenox unless platelet count drops less than 50. Thank you very much for allowing me to participate in care of this patient. I will follow the patient with you. Devi Guzmán MD [facility]/[place] [address] CONSULTATION Name: ENRIQUETA MEDINA Room: [address] IN [facility]#: [id number] Admission: 06/23/20 Attend Phys: Mason Carbajal MD Discharge: Date of : 50 Report #: [id number] <ELECTRONICALLY SIGNED> By: Paige Davis MD 07/30/20 1704 1451 47Devi Guzmán MD /nt
[2020-07-30 17:27] LABS: BE 1.6 mmol/L (-2 to +3); PCO2 49.7 mmHg (35.0-45.0); PO2 110.9 mmHg (75.0-100.0); pH 7.361 (7.340-7.450)
== END 2020-07-30 18:43 | DRG 4 ==
LOC: M.ERS 20:06 → M.ICU 06-23 00:01 → M.2W 06-23 00:01 → M.TBA-ER 06-23 00:01 → M.2W 06-23 00:37 → M.ICU 06-26 15:19
PROVIDERS: Family Medicine; Internal Medicine; Internal Medicine Critical Care Medicine; Internal Medicine Gastroenterology; Nurse Practitioner Adult Health; Pediatrics; Personal Emergency Response Attendant; Surgery; ADMIT Internal Medicine; ATTEND Internal Medicine
DX: A41.89 Other specified sepsis (principal); U07.1 COVID-19; J12.82 Pneumonia due to coronavirus disease 2019; E43 Unspecified severe protein-calorie malnutrition; K85.91 Acute pancreatitis with uninfected necrosis, unspecified; J96.01 Acute respiratory failure with hypoxia; N17.9 Acute kidney failure, unspecified; N39.0 Urinary tract infection, site not specified; R71.0 Precipitous drop in hematocrit; E87.0 Hyperosmolality and hypernatremia; J93.9 Pneumothorax, unspecified; D69.6 Thrombocytopenia, unspecified; E87.6 Hypokalemia; N18.9 Chronic kidney disease, unspecified; F41.9 Anxiety disorder, unspecified; F40.240 Claustrophobia; I95.9 Hypotension, unspecified; M79.7 Fibromyalgia; Z68.31 Body mass index [BMI] 31.0-31.9, adult; Z88.8 Allergy status to other drugs, medicaments and biological substances